=== PATIENT | male | born 1965 | race Caucasian/White ===

== ENCOUNTER → 2021-03-21 | Outpatient (CLI) | payer BC ==
[2021-03-21 12:34] LABS: HEMATOCRIT 47.6 % (42.0-52.0); MEAN CELL VOLUME 91.7 fl (80.0-94.0); MEAN CORPUSCULAR HGB 29.9 pg (27.0-31.0); MEAN CORPUSCULAR HGB CONC 32.6 g/dl (33.0-37.0); MEAN PLATELET VOLUME 10.6 fl (9.6-12.3); RED BLOOD COUNT 5.19 10*6/uL (4.50-5.90); RED CELL DISTRI WIDTH 13.5 % (0-14.5); WHITE BLOOD COUNT 7.5 10*3/uL (4.8-10.8)
[2021-03-21 12:56] LABS: ALBUMIN 3.5 gm/dl (3.1-4.5); ALKALINE PHOSPHATASE 69 U/L (45-117); BUN 16 mg/dl (7-24); CHLORIDE 104 mmol/L (98-107); CHOLESTEROL 173 mg/dL (<200); CREATININE 0.69 mg/dL (0.70-1.30); LDL CHOLESTEROL 117 mg/dL (9-159); POTASSIUM 4.2 mmol/L (3.5-5.1); SGOT/AST 29 IU/L (3-35); SGPT/ALT 48 U/L (12-78); SODIUM 138 mmol/L (136-145); TOTAL PROTEIN 7.2 gm/dL (6.4-8.2); TRIGLYCERIDES 69 mg/dl (<150)
== END | disposition home or self-care (01) ==
LOC: LAB 11:51
PROVIDERS: ATTEND Physician Assistant
DX: Z12.5 Encounter for screening for malignant neoplasm of prostate (principal); R03.0 Elevated blood-pressure reading, without diagnosis of hypertension

== ENCOUNTER → 2021-06-01 | Outpatient (CLI) | payer BC | END | disposition home or self-care (01) | LOC: US 12:45 | PROVIDERS: ATTEND Physician Assistant | DX: M79.661 Pain in right lower leg (principal) ==

== ENCOUNTER → 2021-06-24 | Outpatient (CLI) | payer BC | END | disposition home or self-care (01) | LOC: RAD 10:37 | PROVIDERS: ATTEND Orthopaedic Surgery | DX: S82.101D Unspecified fracture of upper end of right tibia, subsequent encounter for closed fracture with routine healing (principal); X58.XXXD Exposure to other specified factors, subsequent encounter ==

== ENCOUNTER → 2021-07-06 | Outpatient (CLI) | payer BC | END | disposition home or self-care (01) | LOC: RAD 14:20 | PROVIDERS: ATTEND Orthopaedic Surgery | DX: S82.431D Displaced oblique fracture of shaft of right fibula, subsequent encounter for closed fracture with routine healing (principal); X58.XXXD Exposure to other specified factors, subsequent encounter ==

== ENCOUNTER → 2023-06-14 | Outpatient (CLI) | payer BC | END | disposition home or self-care (01) | LOC: MRI 01:50 | PROVIDERS: ATTEND Physician Assistant | DX: M47.816 Spondylosis without myelopathy or radiculopathy, lumbar region (principal); M51.27 Other intervertebral disc displacement, lumbosacral region; M48.061 Spinal stenosis, lumbar region without neurogenic claudication; M48.07 Spinal stenosis, lumbosacral region ==

== ENCOUNTER → 2024-05-17 | Outpatient (CLI) | payer BC ==
[2024-05-18 07:07] LABS: TOTAL PROTEIN, SERUM 6.9 g/dL (6.0-8.5)
[2024-05-18 09:08] LABS: IMMUNOGLOBULIN G, QNT 1085 mg/dL (603-1613); IMMUNOGLOBULIN M, QNT 98 mg/dL (20-172)
[2024-05-18 15:08] LABS: ALBUMIN 3.5 g/dL (2.9-4.4); ALPHA-1-GLOBULIN 0.3 g/dL (0.0-0.4); BETA GLOBULIN 1.1 g/dL (0.7-1.3); FREE KAPPA LIGHT CHAINS 19.9 mg/L (3.3-19.4); FREE LAMBDA LIGHT CHAINS 12.2 mg/L (5.7-26.3); GLOBULIN, TOTAL 3.4 g/dL (2.2-3.9); KAPPA/LAMBDA RATIO 1.63 (0.26-1.65)
[2024-05-22 15:08] LABS: AMPHIPHYSIN ANTIBODY Negative (Negative); ANABT3 Negative (Negative); ANTI-HU AB Negative (Negative); INTERPRETATION Negative (Negative)
== END | disposition home or self-care (01) ==
LOC: LAB 13:11
PROVIDERS: ATTEND Pharmacist
DX: G63 Polyneuropathy in diseases classified elsewhere (principal)

== ENCOUNTER → 2025-04-05 | Outpatient (CLI) | payer BC | END | disposition home or self-care (01) | LOC: ORTHO 01:56 | PROVIDERS: ATTEND Orthopaedic Surgery | DX: M17.11 Unilateral primary osteoarthritis, right knee (principal); M25.761 Osteophyte, right knee; M25.861 Other specified joint disorders, right knee; M25.561 Pain in right knee ==